=== PATIENT | female | born 1990 | race Caucasian/White ===

== ENCOUNTER 2016-12-28 08:17 | Emergency (ER) | payer BC ==
[2016-12-28 08:26] VITALS: O2SAT 99
[2016-12-28] MEDS ORDERED: Sodium Chloride 0.9% 1000 ML 1,000 ML IV STA (08:35)
[2016-12-28] MEDS ORDERED: Vistaril 50 MG/ML IM ONE ×2 (08:36→08:42)
[2016-12-28] MEDS ORDERED: Sodium Chloride 0.9% 1000 ML 1,000 ML ONE (08:42)
[2016-12-28 08:44] LABS: BASOPHIL % 0.5 % (0.0-0.4); Eosinophil % 6.7 % (0.00-5.0); Granulocytes % 47.7 % (36.0-66.0); Lymphocytes % 38.3 % (24.0-44.0); Mean Cell Volume 87.7 fl (78-100); Mean Corpuscular Hemoglobin 29.8 pg (26-32); Mean Platelet Volume 10.6 fl (6-9.5); Monocytes % 6.8 % (0.0-12.0); Platelet Count 225 K/mm3 (150-450); Red Blood Count 4.96 M/mm3 (4.1-5.4); Red Cell Distribution Width 12.9 % (11.5-14.0); White Blood Count 6.2 K/mm3 (4.0-10.5)
--- NOTE | 2016-12-28 08:45 | ERPHSYRPT ---
- History of Present Illness Time Seen by Provider: 12/28/16 08:29 Source: patient Patient Subjective Stated Complaint: PT STATES SHE BECAME DIZZY WITH CHEST PAIN THAT STARTED THIS MORNING BEFORE WORK. PT STATES SHE BECAME WORSE AT WORK. STATES SHE STARTED ON ABILIFY 5 DAYS AGO. Triage Nursing Assessment: PT PINK, WARM, DRY. RADIAL PULSES STRONG. PT AMBULATED INTO ER WITHOUT DIFFICULTY. PT AFEBRILE. LUNG SOUNDS CLEAR AND EQUAL. 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 She is here with her . She feels tightness in her chest. She has some dizziness. She took her AM meds with a double shot energy drink. [place] unusual so had nurses check BP. It was 112/106 so they told her to come to ER. No hx of heart disease or venous thromboembolic disease. No fever or chills. Some diarrhea yesterday. LMP 2-3 weeks ago. Not short of breath. Recently began taking abilify. Timing/Duration: today Severity: moderate Allergies/Adverse Reactions: No Known Drug Allergies Allergy (Unverified 12/28/16 08:26) Home Medications: Aripiprazole [Abilify] 10 mg PO DAILY 12/28/16 [History] Citalopram Hydrobromide 20 mg* [ceLEXa 20 MG] 20 mg PO DAILY 12/28/16 [ History] Hx Tetanus, Diphtheria Vaccination/Date Given: Yes (UP TO DATE) Hx Influenza Vaccination/Date Given: No Hx Pneumococcal Vaccination/Date Given: No Immunizations Up to Date: Yes - Review of Systems Constitutional: Malaise, No Fever, No Chills Eyes: No Symptoms Ears, Nose, & Throat: No Symptoms Respiratory: No Cough, No Dyspnea Cardiac: Chest Pain (tightness feeling), Palpitations, No Syncope Abdominal/Gastrointestinal: Diarrhea (yesterday), No Abdominal Pain, No Nausea, No Vomiting Skin: No Rash Neurological: Dizziness, No Focal Weakness, No Headache, No Parasthesia All Other Systems: Reviewed and Negative - Past Medical History Pertinent Past Medical History: Yes Neurological History: No Pertinent History ENT History: No Pertinent History Cardiac History: No Pertinent History Respiratory History: Asthma Endocrine Medical History: No Pertinent History Musculoskeletal History: No Pertinent History GI Medical History: No Pertinent History History: No Pertinent History Psycho-Social History: Depression Female Reproductive Disorders: No Pertinent History - Past Surgical History Past Surgical History: Yes Neuro Surgical History: No Pertinent History Cardiac: No Pertinent History Respiratory: No Pertinent History Gastrointestinal: No Pertinent History Genitourinary: No Pertinent History Musculoskeletal: No Pertinent History Female Surgical History: Section Other Surgical History: Tonsil Removed - Social History Smoking Status: Current every day smoker How long have you smoked: 9 Exposure to second hand smoke: No Drug Use: none Patient Lives Alone: No - Female History Hx Last Menstrual Period: DECEMBER 08 2016 - Nursing Vital Signs Nursing Vital Signs: Initial Vital Signs Temperature 97.0 F Temperature Source Oral Pulse Rate [Bilateral Radial] 125 Pulse Rate 91 Respiratory Rate 18 Blood Pressure [Right Arm] 101/70 Pain Intensity 0 - Physical Exam General Appearance: alert Eye Exam: PERRL/EOMI Ears, Nose, Throat Exam: normal ENT inspection, moist mucous membranes Neck Exam: normal inspection, non-tender, supple Respiratory Exam: normal breath sounds, lungs clear, No respiratory distress Cardiovascular Exam: regular rate/rhythm, No murmur Gastrointestinal/Abdomen Exam: soft, No tenderness, No distention Back Exam: normal inspection Extremity Exam: normal inspection, normal range of motion, No calf tenderness, No pedal edema Neurologic Exam: alert, oriented x 3, cooperative, form presser II-XII nml as tested, sensation nml, No motor deficits Skin Exam: warm, dry, No rash SpO2 Interpretation: normal SpO2: 99 Oxygen Delivery: Room Air - Course Nursing assessment & vital signs reviewed: Yes EKG Interpreted by Me: RATE (116), Sinus Tach, NORMAL AXIS, NORMAL INTERVALS ( QTc 443), Non-specific ST Changes - Radiology Exams cxr X-ray Interpretation: Reviewed by me, Negative Ordered Tests: Active Orders 24 hr Category Date Time Status Pilot STAT Care 12/28/16 08:28 Active Clean Catch Urine Specimen STAT Care 12/28/16 08:35 Active EKG-ER Only STAT Care 12/28/16 08:28 Active IV Insertion STAT Care 12/28/16 08:36 Active Orthostatic Vital Signs STAT Care 12/28/16 08:36 Active CHEST 1 VIEW (PORTABLE) Stat Exams 12/28/16 08:36 Completed CBC W DIFF Stat Lab 12/28/16 08:30 Completed CMP Stat Lab 12/28/16 08:30 Completed Ethyl Alcohol,Urine Stat Lab 12/28/16 08:30 Completed HCG QUALITATIVE,SERUM Stat Lab 12/28/16 08:30 Completed Lactic Acid Stat Lab 12/28/16 08:45 Completed TROPONIN Stat Lab 12/28/16 08:30 Completed UA W/RFX UR CULTURE Stat Lab 12/28/16 08:30 Completed Urine Triage Profile Stat Lab 12/28/16 08:30 Completed Medication Summary Discontinued Medications Generic Name Dose Route Start Last Admin Trade Name Freq PRN Reason Stop Dose Admin Hydroxyzine HCl 50 mg 12/28/16 08:36 12/28/16 08:46 Vistaril 50 Mg/Ml IM 12/28/16 08:37 50 mg STAT ONE Administration Hydroxyzine HCl Confirm 12/28/16 08:42 Vistaril 50 Mg/Ml Administered 12/28/16 08:43 Dose 50 mg IM .STK-MED ONE Sodium Chloride 1,000 mls @ 999 mls/hr 12/28/16 08:35 12/28/16 08:46 Sodium Chloride 0.9% 1000 Ml IV 12/28/16 09:35 999 mls/hr .Q1H1M STA Administration Sodium Chloride Confirm 12/28/16 08:42 Sodium Chloride 0.9% 1000 Ml Administered 12/28/16 08:43 Dose 1,000 mls @ ud .ROUTE .STK-MED ONE Lab/Rad Data: Laboratory Result Diagrams 12/28/16 08:30 12/28/16 08:30 Laboratory Results 12/28/16 12/28/16 12/28/16 Range/Units 08:45 08:30 08:30 WBC (4.0-10.5) K/mm3 RBC (4.1-5.4) M/mm3 Hgb (12.0-16.0) gm/dl Hct (35-47) % MCV (78-100) fl MCH (26-32) pg MCHC (32-36) g/dl RDW (11.5-14.0) % Plt Count (150-450) K/mm3 MPV (6-9.5) fl Gran % (36.0-66.0) % Lymphocytes % (24.0-44.0) % Monocytes % (0.0-12.0) % Eosinophils % (0.00-5.0) % Basophils % (0.0-0.4) % Basophils # (0-0.4) Sodium (136-145) mEq/L Potassium (3.5-5.1) mEq/L Chloride (98-107) mEq/L Carbon Dioxide (21-32) mEq/L Anion Gap (5-15) MEQ/L BUN (9-20) mg/dL Creatinine (0.55-1.30) mg/dl Estimated GFR ML/MIN Glucose (70-110) MG/DL Lactic Acid 1.8 (0.4-2.0) Calcium (8.5-10.1) mg/dL Total Bilirubin (0.2-1.0) mg/dL AST (15-37) U/L ALT (12-78) U/L Alkaline Phosphatase (46-116) U/L Troponin I (0.000-0.056) ng/ml Serum Total Protein (6.4-8.2) gm/dL Albumin (3.4-5.0) g/dL Serum , Qual (Negative) Ur Collection Type Urine Color (YELLOW) Urine Appearance (CLEAR) Urine pH 7.0 (5-6) Ur Specific [place] (1.005-1.025) Urine Protein (Negative) Urine Ketones (NEGATIVE) Urine Blood (0-5) Felix/ul Urine Nitrite (NEGATIVE) Urine Bilirubin (NEGATIVE) Urine Urobilinogen (0-1) mg/dL Ur Leukocyte Esterase (NEGATIVE) Urine Glucose (NEGATIVE) mg/dL Urine Opiates Level NEG. (NEGATIVE) Ur Methadone NEG. (NEGATIVE) Urine Barbiturates NEG. (NEGATIVE) Ur Phencyclidine (PCP) NEG. (NEGATIVE) Urine Amphetamine NEG. (NEGATIVE) U Benzodiazepine Level NEG. (NEGATIVE) Urine Cocaine NEG. (NEGATIVE) Urine Marijuana (THC) NEG. (NEGATIVE) Urine Ethyl Alcohol < 3 (0.00-20) mg/dl Specimen Received 12/28/16 12/28/16 12/28/16 Range/Units 08:30 08:30 08:30 WBC 6.2 (4.0-10.5) K/mm3 RBC 4.96 (4.1-5.4) M/mm3 Hgb 14.8 (12.0-16.0) gm/dl Hct 43.5 (35-47) % MCV 87.7 (78-100) fl MCH 29.8 (26-32) pg MCHC 34.0 (32-36) g/dl RDW 12.9 (11.5-14.0) % Plt Count 225 (150-450) K/mm3 MPV 10.6 H (6-9.5) fl Gran % 47.7 (36.0-66.0) % Lymphocytes % 38.3 (24.0-44.0) % Monocytes % 6.8 (0.0-12.0) % Eosinophils % 6.7 H (0.00-5.0) % Basophils % 0.5 (0.0-0.4) % Basophils # 0.03 (0-0.4) Sodium 142 (136-145) mEq/L Potassium 3.4 L (3.5-5.1) mEq/L Chloride 103 (98-107) mEq/L Carbon Dioxide 28.5 (21-32) mEq/L Anion Gap 13.4 (5-15) MEQ/L BUN 10 (9-20) mg/dL Creatinine 0.83 (0.55-1.30) mg/dl Estimated GFR > 60 ML/MIN Glucose 108 (70-110) MG/DL Lactic Acid (0.4-2.0) Calcium 9.6 (8.5-10.1) mg/dL Total Bilirubin 0.20 (0.2-1.0) mg/dL AST 16 (15-37) U/L ALT 18 (12-78) U/L Alkaline Phosphatase 42 L (46-116) U/L Troponin I < 0.017 (0.000-0.056) ng/ml Serum Total Protein 8.1 (6.4-8.2) gm/dL Albumin 4.4 (3.4-5.0) g/dL Serum , Qual NEGATIVE (Negative) Ur Collection Type Urine Color (YELLOW) Urine Appearance (CLEAR) Urine pH (5-6) Ur Specific [place] (1.005-1.025) Urine Protein (Negative) Urine Ketones (NEGATIVE) Urine Blood (0-5) Felix/ul Urine Nitrite (NEGATIVE) Urine Bilirubin (NEGATIVE) Urine Urobilinogen (0-1) mg/dL Ur Leukocyte Esterase (NEGATIVE) Urine Glucose (NEGATIVE) mg/dL Urine Opiates Level (NEGATIVE) Ur Methadone (NEGATIVE) Urine Barbiturates (NEGATIVE) Ur Phencyclidine (PCP) (NEGATIVE) Urine Amphetamine (NEGATIVE) U Benzodiazepine Level (NEGATIVE) Urine Cocaine (NEGATIVE) Urine Marijuana (THC) (NEGATIVE) Urine Ethyl Alcohol (0.00-20) mg/dl Specimen Received 12/28/16 Range/Units 08:30 WBC (4.0-10.5) K/mm3 RBC (4.1-5.4) M/mm3 Hgb (12.0-16.0) gm/dl Hct (35-47) % MCV (78-100) fl MCH (26-32) pg MCHC (32-36) g/dl RDW (11.5-14.0) % Plt Count (150-450) K/mm3 MPV (6-9.5) fl Gran % (36.0-66.0) % Lymphocytes % (24.0-44.0) % Monocytes % (0.0-12.0) % Eosinophils % (0.00-5.0) % Basophils % (0.0-0.4) % Basophils # (0-0.4) Sodium (136-145) mEq/L Potassium (3.5-5.1) mEq/L Chloride (98-107) mEq/L Carbon Dioxide (21-32) mEq/L Anion Gap (5-15) MEQ/L BUN (9-20) mg/dL Creatinine (0.55-1.30) mg/dl Estimated GFR ML/MIN Glucose (70-110) MG/DL Lactic Acid (0.4-2.0) Calcium (8.5-10.1) mg/dL Total Bilirubin (0.2-1.0) mg/dL AST (15-37) U/L ALT (12-78) U/L Alkaline Phosphatase (46-116) U/L Troponin I (0.000-0.056) ng/ml Serum Total Protein (6.4-8.2) gm/dL Albumin (3.4-5.0) g/dL Serum , Qual (Negative) Ur Collection Type CCMS Urine Color YELLOW (YELLOW) Urine Appearance CLEAR (CLEAR) Urine pH 7.0 (5-6) Ur Specific [place] 1.005 (1.005-1.025) Urine Protein NEGATIVE (Negative) Urine Ketones NEGATIVE (NEGATIVE) Urine Blood NEGATIVE (0-5) Felix/ul Urine Nitrite NEGATIVE (NEGATIVE) Urine Bilirubin NEGATIVE (NEGATIVE) Urine Urobilinogen NORMAL (0-1) mg/dL Ur Leukocyte Esterase NEGATIVE (NEGATIVE) Urine Glucose NEGATIVE (NEGATIVE) mg/dL Urine Opiates Level (NEGATIVE) Ur Methadone (NEGATIVE) Urine Barbiturates (NEGATIVE) Ur Phencyclidine (PCP) (NEGATIVE) Urine Amphetamine (NEGATIVE) U Benzodiazepine Level (NEGATIVE) Urine Cocaine (NEGATIVE) Urine Marijuana (THC) (NEGATIVE) Urine Ethyl Alcohol (0.00-20) mg/dl Specimen Received 12/28/1630 - Progress Progress Note: 12/28/16 09:37 The patient was given IVF bolus, IM vistaril. Labs and testing reassuring. She is on phone now and ate a popsicle. Offered 3 hour troponin or home. She is calling her father to go home. Advised speak to Dr Johnson her psychiatrist about the new abililfy. Advised no caffiene or energy drinks. Counseled pt/family regarding: lab results, diagnosis, need for follow-up, rad results - Departure Time of Disposition: 09:40 Departure Disposition: Home Clinical Impression: Chest tightness, Palpitations, Anxiety Condition: Stable Critical Care Time: No Referrals: PEARL MATHEWS [Primary Care Provider] - Instructions: Atypical Chest Pain, Caffeine. Additional Instructions: Avoid caffeine products, energy drinks. Call Dr Mora about your medications. Return for problems or concerns. Stay with family and no driving today.
[2016-12-28 08:53] LABS: ADD URINE CULTURE? NO (NO); Bilirubin NEGATIVE (NEGATIVE); Blood NEGATIVE Ery/ul (0-5); COMPLETE URINE MICROSCOPIC? NO; Collection Type CCMS; Glucose NEGATIVE (NEGATIVE); Leukocyte Esterase NEGATIVE (NEGATIVE)
[2016-12-28 09:03] LABS: ALBUMIN 4.4 g/dL (3.4-5.0); ALKALINE PHOSPHATASE 42 U/L (46-116); ANION GAP 13.4 MEQ/L (5-15); BLOOD UREA NITROGEN 10 mg/dL (9-20); CHLORIDE 103 mEq/L (98-107); Carbon Dioxide 28.5 mEq/L (21-32); Glucose 108 MG/DL (70-110); Potassium 3.4 mEq/L (3.5-5.1); SGOT/AST 16 U/L (15-37); SODIUM 142 mEq/L (136-145); Total Protein 8.1 gm/dL (6.4-8.2)
[2016-12-28 09:04] LABS: TROPONIN < 0.017 ng/ml (0.000-0.056)
--- NOTE | 2016-12-28 09:06 | XRAY ---
Indication: Palpitations. Comparison: None Portable chest demonstrates normal heart, lungs, and bony thorax.
[2016-12-28 09:18] LABS: SGPT/ALT 18 U/L (12-78)
[2016-12-28 09:29] VITALS: PULSE 91
[2016-12-28 10:24] VITALS: BP 99/60
== END 2016-12-28 10:22 | disposition home or self-care (01) ==
LOC: ED 08:17
DX: R07.89 Other chest pain (principal); R00.2 Palpitations; F41.9 Anxiety disorder, unspecified
CPT/HCPCS: 36000; 36415; 71010; 80053; 80307; 80320; 81002; 83605; 83986; 84484; 84703; 85025; 93005; 93041; 96360; 96372; 99284; J3410

== ENCOUNTER 2018-07-14 21:27 | Emergency (ER) | payer BC, MEDICAID ==
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
[2018-07-14 22:21] VITALS: BP 108/96
[2018-07-14 22:31] LABS: Appearance CLEAR (CLEAR); Bacteria RARE /HPF (NEGATIVE); Bilirubin NEGATIVE (NEGATIVE); Blood NEGATIVE Ery/ul (0-5); Epithelial Cells RARE /HPF (FEW); Glucose NEGATIVE (NEGATIVE); Ketones NEGATIVE (NEGATIVE); Leukocyte Esterase NEGATIVE (NEGATIVE); Mucus SLIGHT /HPF (NEGATIVE); Nitrite NEGATIVE (NEGATIVE); Protein,Urine Dip NEGATIVE (Negative); Specific Gravity 1.002 (1.005-1.025); Urobilinogen NEGATIVE mg/dL (0-1); WBC 0-2 /HPF (0-5)
[2018-07-14 22:44] LABS: Amphetamine,Urine POSITIVE (NEGATIVE); Barbiturate,Urine NEGATIVE (NEGATIVE); Benzodiazepine,Urine NEGATIVE (NEGATIVE); Cocaine,Urine NEGATIVE (NEGATIVE); Methadone,Urine NEGATIVE (NEGATIVE); Opiate,Urine NEGATIVE (NEGATIVE); PCP,Urine NEGATIVE (NEGATIVE); THC,Urine NEGATIVE (NEGATIVE)
[2018-07-14] MEDS ORDERED: Ativan 2 MG/1 ML VIAL IM ONE (23:03)
[2018-07-14] MEDS ORDERED: Ativan 2 MG/1 ML VIAL ONE (23:06)
[2018-07-14 23:45] VITALS: PULSE 118; O2SAT 98
== END 2018-07-15 01:18 | disposition home or self-care (01) ==
LOC: ED 21:27
DX: F41.0 Panic disorder [episodic paroxysmal anxiety] (principal); F15.10 Other stimulant abuse, uncomplicated; F32.9 Major depressive disorder, single episode, unspecified; F22 Delusional disorders; F43.10 Post-traumatic stress disorder, unspecified; Z72.0 Tobacco use
CPT/HCPCS: 80307; 81001; 84703; 93005; 96372; 99284; J2060